=== PATIENT | male | born 1945 | race Caucasian/White ===

== ENCOUNTER → 2016-06-10 | Outpatient (CLI) | payer OTHER ==
[~2016-06-10] MED LIST: ACID CONTROL20 MG PO; AMLODIPINE BESY10 MG PO; ANTIVERT25 MG PO; ASPIRIN325; ASPIRIN325 PO; AZITHROMYCIN 2250 MG PO; DIOVAN40 MG PO; EFFIENT10 MG PO; EXFORGE 10-1601 EACH PO; HUMALOG100 UNIT/1 SQ; KEFLEX500 MG PO; LASIX 20 MG TAB20 MG PO; LASIX 40 MG TAB40 MG GT; LIPITOR10 MG PO; PHENERGAN 25 MG25 M1 PO; TOPROL XL50 MG PO; VALTURNA 300-31 EACH PO; ZANTAC 150MG T150 MG PO
== END ==
LOC: MRI 06:51
DX: I65.29 Occlusion and stenosis of unspecified carotid artery (principal); R47.01 Aphasia; R68.89 Other general symptoms and signs